=== PATIENT | female | born 1990 | race Caucasian/White ===

== ENCOUNTER 2020-06-11 07:46 | Outpatient (CLI) | payer BC, SELFPAY ==
[2020-06-11 09:50] LABS: Hemoglobin A1C 5.4 % (<5.7)
[2020-06-11 10:22] LABS: Vitamin B12 570 pg/mL (193-986)
[2020-06-13 11:14] LABS: Vitamin D 25 Hydroxy 34 ng/mL (30-100)
[2020-06-15 04:57] LABS: Insulin Level Total 5.2 uIU/mL (<=19.6)
== END 2020-06-11 07:47 | disposition home or self-care (01) ==
PROVIDERS: PCP Internal Medicine; Visit Provider Nurse Practitioner
DX: E28.2 Polycystic ovarian syndrome (principal)
CPT/HCPCS: 36415; 82306; 82607; 83036; 83525

== ENCOUNTER 2021-08-18 12:27 | Emergency (ER) | payer BC, SELFPAY ==
--- NOTE | 2021-08-18 12:42 | PC.NURSE ---
pt informed er is very busy and erp will see bennie. pt instructed to inform this television script writer of any changes in condition. instructed to remain NPO until see in er.
[2021-08-18 12:51] VITALS: BP 137/96; PULSE 80; RESP 16; TEMP 36.4; O2SAT 97
== END 2021-08-18 12:42 | disposition left against medical advice (07) ==
LOC: CHSED 12:30
PROVIDERS: Emergency Provider Emergency Medicine; PCP Internal Medicine
DX: Z53.8 Procedure and treatment not carried out for other reasons (principal)
CPT/HCPCS: 99199

== ENCOUNTER 2023-05-18 09:47 | Outpatient (CLI) | payer BC, SELFPAY ==
--- NOTE | ~2023-05-18 | XR_ITS ---
EXAMINATION: XR hand RT min 3V DATE: 05/18/2023 10:18 INDICATION: Right hand injury and pain. TECHNIQUE: 3 views of right hand were obtained. COMPARISON: None. FINDINGS: Bone alignment is normal. No fracture. Joint spaces are well maintained. IMPRESSION: 1. Normal right hand. Reviewed, dictated and finalized at location A. IMPRESSION: 1. Normal right hand.
== END 2023-05-18 09:48 | disposition home or self-care (01) ==
LOC: CHSIMG 09:51
PROVIDERS: PCP Internal Medicine; Visit Provider Internal Medicine
DX: S67.21XA Crushing injury of right hand, initial encounter (principal)
CPT/HCPCS: 73130

== ENCOUNTER 2023-10-20 07:48 | Outpatient (RCR) | payer BC, SELFPAY ==
--- NOTE | 2023-10-20 10:42 | OTOPEVAL1 ---
Assessment and note entered by Dipti Hart, OT Evaluation Information Assessment Status Evaluation Diagnosis Closed -punch intra-articular fracture of distal radius, right, initial Onset 10/07/2023 Subjective Information The patient reports 0/10 pain at the time of evaluation and 5/10 pain when her pain is at it's worst. The patient reports that she got blisters from the tape that was placed when her wrist and has scabs at volar forearm that are healing well. The patient reports that she only has pain when she moves her wrist and the pain does not wake her up at night. 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 The patient reports that she has a weight restriction of lifting only the weight of a coffee cup at this time. Reported Pain Level Pain Score 0: Self Report Assessment OT Clinical Summary The patient is a 33 year old female who was referred to outpatient OT due to R radius fracture with ORIF. 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 The patient now demonstrates minimally impaired AROM and edema with moderately impaired UE strength and glass forming engineer strength due to surgery. The patient scored 56.8% on QuickDASH questionnaire at the time of evaluation demonstrating moderate dysfunction of R UE leading to difficulty with carrying a shopping bag, unable to open a tight jar, cut her food or perform leisure tasks as before. The patient requires skilled OT to address these deficits and return to PLOF. Plan of Care Interventions Therapeutic Exercise,Manual Therapy,Neuro Re- education,Therapeutic Activities,Hot Pack/Cold Pack,Electrical Stimulation,Sensory Integrative Techn,Self-Care/Home Management,Prosthetic Training,Check Out for Orthotic/Pr,Ultrasound OT Services Indicated Yes Treatment Frequency and 2x/week for 10 visits. Duration These treatments will address the objective and functional deficits as defined above. The patient will be advanced safely and appropriately in order for the patient to progress towards his/her prior level of function. Additional exercises will be introduced and as well as a comprehensive home exercise program upon discharge, if needed, ?to ensure carryover of functional gains achieved in the clinic. This treatment plan has been reviewed and agreement upon by the patient.
--- NOTE | 2023-10-27 16:34 | BUOTOPEVAL ---
Assessment and note entered by Dipti Hart, OT Evaluation Information Assessment Status Evaluation Diagnosis Closed -punch intra-articular fracture of distal radius, right, initial Onset 10/07/2023 Subjective Information The patient reports 0/10 pain at the time of evaluation and 5/10 pain when her pain is at it's worst. The patient reports that she got blisters from the tape that was placed when her wrist and has scabs at volar forearm that are healing well. The patient reports that she only has pain when she moves her wrist and the pain does not wake her up at night. 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 The patient reports that she has a weight restriction of lifting only the weight of a coffee cup at this time. Reported Pain Level Pain Score 0: Self Report Pain Score 0: Self Report Pain Score 0: Self Report Assessment OT Clinical Summary The patient is a 33 year old female who was referred to outpatient OT due to R radius fracture with ORIF. 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 The patient now demonstrates minimally impaired AROM and edema with moderately impaired UE strength and ladies suit operator strength due to surgery. The patient scored 56.8% on QuickDASH questionnaire at the time of evaluation demonstrating moderate dysfunction of R UE leading to difficulty with carrying a shopping bag, unable to open a tight jar, cut her food or perform leisure tasks as before. The patient requires skilled OT to address these deficits and return to PLOF. Plan of Care Interventions Therapeutic Exercise,Manual Therapy,Neuro Re- education,Therapeutic Activities,Hot Pack/Cold Pack,Electrical Stimulation,Sensory Integrative Techn,Self-Care/Home Management,Prosthetic Training,Check Out for Orthotic/Pr,Ultrasound OT Services Indicated Yes Treatment Frequency and 2x/week for 10 visits. Duration These treatments will address the objective and functional deficits as defined above. The patient will be advanced safely and appropriately in order for the patient to progress towards his/her prior level of function. Additional exercises will be introduced and as well as a comprehensive home exercise program upon discharge, if needed, ?to ensure carryover of functional gains achieved in the clinic. This treatment plan has been reviewed and agreement upon by the patient.
--- NOTE | 2023-11-27 08:18 | OTOPPROG ---
Assessment and note entered by Dipti Hart OT Evaluation Information Assessment Status Progress Diagnosis Closed -punch intra-articular fracture of distal radius, right Onset 10/07/2023 Subjective Information The patient reports 0-2/10 pain at the pains worst during daily activities. The patient can perform daily activities with minimal pain. No numbness/ tingling and the patient is able to perform daily tasks such as opening jars and completing dressing without assist. She wants to get back to working out and lifting heavier weights/push ups. Assessment OT Clinical Summary The patient demonstrates significant progress in wrist pain, wrist mobility/ROM, bending frame operator strength and wrist strength resulting in increased independence with ADLs without discomfort. The patient is able to perform all work tasks and ADLs with minimal to no pain. She continues to demonstrate deficits in wrist AROM and has minimal pain, the patient to complete UE HEP and is educated on continued completion of exercises. The patient to see MD next week and determine if continued need for OT. To address wrist ROM and bending frame operator strength going forward. Plan of Care Interventions Therapeutic Exercise,Manual Therapy,Neuro Re- education,Therapeutic Activities,Hot Pack/Cold Pack,Electrical Stimulation,Self-Care/Home Management,Prosthetic Training,Ultrasound OT Services Indicated Yes Treatment Frequency and 1x/week for 10 visits. Duration These treatments will address the objective and functional deficits as defined above. The patient will be advanced safely and appropriately in order for the patient to progress towards his/her prior level of function. Additional exercises will be introduced and as well as a comprehensive home exercise program upon discharge, if needed, ?to ensure carryover of functional gains achieved in the clinic. This treatment plan has been reviewed and agreement upon by the patient.
== END 2023-11-27 20:00 | disposition home or self-care (01) ==
LOC: CHSOT 07:48
DX: S52.571D Other intraarticular fracture of lower end of right radius, subsequent encounter for closed fracture with routine healing (principal)
CPT/HCPCS: 97110; 97140; 97165; 97530